=== PATIENT | female | born 1970 | race Caucasian/White ===

== ENCOUNTER 2017-06-06 19:20 | Emergency (ER) | payer OTHER ==
[~2017-06-06] VITALS: Ht 157.5 cm; Wt 74.8 kg
[~2017-06-06 19:20] MED LIST: ADDERALL XR30 MG PO; ATIVAN0.5 MG PO; BACTRIM DS TAB1 EACH PO; CHANTIX STARTING1 MG PO; CYMBALTA60 MG PO; FLEXERIL10 MG PO; IBUPROFEN800 M1 PO; KEFLEX500 M1 PO; LISINOPRIL10 MG PO; MOBIC 15MG15 MG PO; NAPROSYN500 M1 PO; OXYCODONE5 M1 PO; PERCOCET 325 MG1 TA2 PO; PERCOCET 325 MG1 TAB PO; PERCOCET 5-3251 EACH PO; PRAZOSIN HYDROCH2 MG PO
[2017-06-06 19:40] VITALS: BP 127/85
--- NOTE | 2017-06-06 20:22 | ED GENERAL ADULT ---
History of Present Illness General Chief Complaint: General Adult Stated Complaint: FALL, TWO ABCESS(1 ON ARM,1 ON THIGH) Source: patient Exam Limitations: no limitations Vital Signs & Intake/Output Vital Signs & Intake/Output Vital Signs Date Time Temp Pulse Resp B/P B/P Pulse O2 O2 Flow FiO2 Mean Ox Delivery Rate 06/06 1939 97.9 77 18 127/85 99 Room Air Allergies Coded Allergies: NO KNOWN ALLERGIES (12/25/15) Reconcile Medications Amphetamine Salt Combination (Adderall XR) 30 MG CER 1 CAP PO QAM ADD ( Reported) Cephalexin (Keflex) 500 MG CAPSULE 1 CAP PO 4 TIMES/DAY cellulitis CYCLOBENZAPRINE HCL (Flexeril) 10 MG TAB 1 TAB PO TID PRN MUSCLE RELAXATION Doxycycline Hyclate 100 MG CAPSULE 1 CAP PO BID ABCESS DULOXETINE HCL (Cymbalta) 60 MG ECC 1 CAP PO DAILY FIBROMYALGIA (Reported) Ibuprofen 800 MG TABLET 1 TAB PO TID PRN pain Indomethacin 25 MG CAPSULE 1 CAP PO TID PRN PAIN with food Lisinopril 10 MG TAB 1 TAB PO DAILY BP (Reported) Lorazepam (Ativan) 0.5 MG TAB 1 TAB PO PRN ANXIETY (Reported) Meloxicam (Mobic 15MG) 15 MG TAB 1 TAB PO DAILY PRN PAIN/INFLAMMATION Naproxen (Naprosyn) 500 MG TABLET 1 TAB PO BID PRN pain Oxycodone HCl/Acetaminophen (Percocet 5-325 MG Tablet) 1 EACH TABLET 1 TAB PO BID PRN PAIN Oxycodone HCl/Acetaminophen (Percocet 5-325 MG Tablet) 1 EACH TABLET 1-2 TAB PO Q6P PRN pain Oxycodone HCl/Acetaminophen (Percocet 5-325 MG Tablet) 1 EACH TABLET 1 TAB PO BID PRN pain four... [id number] Oxycodone HCl/Acetaminophen (Percocet 5-325 MG Tablet) 1 EACH TABLET 1 TAB PO Q6P PRN severe pain Prazosin Hydrochloride 2 MG CAP 1 CAP PO QPM PTSD (Reported) Sulfamethoxazole/Trimethoprim (Bactrim Ds Tablet) 1 EACH TABLET 1 TAB PO BID cellulitis Triage Note: PT TO ER WITH MULTIPLE MEDICAL COMPLAINTS: 1. URINARY URGENCY/ FREQUENCY X 1 DAY 2. LEFT ARM AND LEFT GROIN ABSCESS (RE-OCCURING) 3. RIGHT KNEE PAIN 9/10 S/P SLIP AND FALL ON ICE LAST WEEK. (WAS SEEN IN ER FOR SAME, HAD X RAY DONE) STATES PAIN IS INCREASING Triage Nurses Notes Reviewed? yes Onset: Gradual Duration: worse persistent since (2-3 DAYS) Timing: recent history Injury Environment: home Severity: moderate No Modifying Factors: none HPI: Patient is a 47-year-old female presenting to the emergency department with chief complaint of urinary frequency 1 day. No fevers chills nausea vomiting chest pain or shortness of breath. Denies back pain. Patient also reporting continued right knee pain after a slip and fall 1 week ago. She was evaluated here and had a negative x-ray. Denies any new injury. Is currently trying to get into see an orthopedic. Patient also complaining of abscess to left axilla region and left groin area. Has had abscesses in the past. Denies any fevers associated with them. She reports that the one in her groin area has been draining since she arrived in the emergency department. (Tiera Cunningham) Past History Travel History Traveled to [place] past 21 day No Medical History Any Pertinent Medical History? 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 No (Tiera Cunningham) Review of Systems Review of Systems Constitutional: Reports: no symptoms. Comments Review of systems: See HPI, All other systems negative. Constitutional, no chills fever or weight loss HEENT: No visual changes no sore throat no congestion Cardiovascular: No chest pain ,palpitation , orthopnea or ankle swelling Skin, no jaundice Respiratory: No dyspnea cough sputum or hemoptysis GI: No nausea no vomiting : No hematuria Muscle skeletal: no back pain, no neck pain, Neurologic: No numbness no confusion Psych: No stress anxiety or depression,. Heme/endocrine: No bruising no bleeding no polyuria or polydipsia Immunology: No splenectomy or history of AIDS (Tiera Cunningham) Physical Exam Physical Exam General Appearance: well developed/nourished, no apparent distress, alert, awake , comfortable Comments: Well-developed well-nourished person in no acute distress HEENT: Atraumatic, normocephalic Neck: Normal inspection Back: Nontender, no CVA tenderness. Cardiovascular: Pedal pulses are 2+ bilaterally. Respiratory: No respiratory distress. Extremity: No edema, no calf tenderness to palpation, normal and equal pulses. Tender to palpation over the right patella, negative ballottement test, negative anterior-posterior drawer test. Limited range of motion of the right patella secondary to pain. Range of motion of right foot, ankle and right hip. Also tender to palpation over the right medial joint line. No crepitus palpated. Neuro: Alert oriented x3, Skin: Small superficial abscess approximately 2 cm in size and left axilla area, fluctuant, nontender, no surrounding erythema or edema. No discharge. Second abscess noted in the left groin area approximately 1 cm in size, active drainage. Psych: Mood and affect is normal, memory and judgment is normal. Core Measures ACS in differential dx? No CVA/TIA Diagnosis: No Sepsis Present: No Sepsis Focused Exam Completed? No (Tiera Cunningham) Progress Differential Diagnoses I considered the following diagnoses in my evaluation of the patient: Abscess, cellulitis, MRSA, knee contusion, knee sprain, meniscal injury, UTI Plan of Care: Orders Procedure Date/time Status EXTREMETIES CULTURE 06/06 2048 Active CULTURE,URINE 06/06 1939 Active URINE 06/06 1939 Complete URINALYSIS 06/06 1939 Complete Laboratory Tests 06/06/17 2030: Urinalysis LIGHT H, Urine Color YEL, Urine Clarity HAZY H, Urine pH 6.5, Ur Specific [place] >= 1.030, Urine Protein 30 H, Urine Ketones TRACE H, Urine Nitrite NEG, Urine Bilirubin NEG@ICTO, Urine Urobilinogen 1.0, Ur Leukocyte Esterase NEG, Ur Microscopic SEDIMENT EXAMINED, Urine RBC 1-3, Urine WBC 1-3 H, Ur Epithelial Cells MOD H, Urine Bacteria MOD H, Urine Mucus FEW, Urine Hemoglobin TRACE-INTACT, Urine Glucose NEG, Urine Test NEGATIVE Microbiology 06/06 2099 EXTREMITIE: Culture & Sensitivity - RECD 06/06 2099 EXTREMITIE: Gram Stain - RECD 06/06 2029 URINE ROUT: Urine Culture - RECD Initial ED EKG: none (Tiera Cunningham) Departure Departure Time of Disposition: 2044 Disposition: HOME OR SELF CARE Condition: Stable Clinical Impression Primary Impression: Knee contusion Qualifiers: Encounter type: initial encounter Laterality: right Qualified Code: S80.01XA - Contusion of right knee, initial encounter Secondary Impressions: Abscess, Dysuria Referrals: Yoav Alvarez MD (PCP/Family) Additional Instructions: Follow-up with the orthopedic as scheduled. Follow up with her primary care physician in the next 5-7 days. If abscess recurs follow-up with the surgeon. Take antibiotics as prescribed. Apply warm compresses to affected area. 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 I have also reviewed all the pertinent lab results and diagnostic results. I agree with the findings and the plan of care as documented in the PA's/PROCESS MANUFACTURING ENGINEER's documentation. x I have reviewed the ED Record and agree with the PA's/PROCESS MANUFACTURING ENGINEER's documentation. [] Additions or exceptions (if any) to the PAs/PROCESS MANUFACTURING ENGINEER's note and plan are summarized below: [] (Bill PEGUERO,Marty) Procedures Incision and Drainage Site: LEFT AXILLA Blade Size: 11 I & D Procedure: Yes: betadine prep, sterile drapes applied, sterile dressing applied. No: wick placed. Progress: Tolerated procedure well. (Tiera Cunningham) Critical Care Note Critical Care Note Critical Care Time: non-applicable (Tiera Cunningham)
[2017-06-06] MEDS ORDERED: DOXYCYCLINE HY100 M2 PO (20:47)
[2017-06-06] MEDS ORDERED: INDOMETHACIN25 M1 PO (20:47)
== END 2017-06-06 21:22 ==
LOC: ERH 19:20
DX: S80.01XA Contusion of right knee, initial encounter (principal); L02.412 Cutaneous abscess of left axilla; R30.0 Dysuria; W01.0XXA Fall on same level from slipping, tripping and stumbling without subsequent striking against object, initial encounter; Y92.9 Unspecified place or not applicable; Y93.9 Activity, unspecified
CPT/HCPCS: 81001; 81025; 87070; 87086

== ENCOUNTER 2017-10-05 17:44 | Emergency (ER) | payer OTHER ==
[~2017-10-05] VITALS: Ht 157.5 cm; Wt 74.8 kg
[~2017-10-05 17:44] MED LIST changes: +DOXYCYCLINE HY100 M2 PO; +INDOMETHACIN25 M1 PO
--- NOTE | 2017-10-05 18:26 | ED GI/GU/ABDOMINAL COMPLAINT ---
History of Present Illness General Chief Complaint: Abdominal Pain/Flank Pain Stated Complaint: ABD PAIN Source: patient, old records Exam Limitations: no limitations Vital Signs & Intake/Output Vital Signs & Intake/Output Vital Signs Date Time Temp Pulse Resp B/P B/P Pulse O2 O2 Flow FiO2 Mean Ox Delivery Rate 10/06 2019 77 18 119/84 98 Room Air 10/05 1750 97.9 83 15 120/78 98 Room Air Room Air Allergies Coded Allergies: No Known Allergies (10/05/17) Reconcile Medications Amphetamine Salt Combination (Adderall XR) 30 MG CER 1 CAP PO QAM ADD ( Reported) Cephalexin (Keflex) 500 MG CAPSULE 1 CAP PO 4 TIMES/DAY cellulitis CYCLOBENZAPRINE HCL (Flexeril) 10 MG TAB 1 TAB PO TID PRN MUSCLE RELAXATION Doxycycline Hyclate 100 MG CAPSULE 1 CAP PO BID ABCESS DULOXETINE HCL (Cymbalta) 60 MG ECC 1 CAP PO DAILY FIBROMYALGIA (Reported) Ibuprofen 800 MG TABLET 1 TAB PO TID PRN pain Indomethacin 25 MG CAPSULE 1 CAP PO TID PRN PAIN with food Lisinopril 10 MG TAB 1 TAB PO DAILY BP (Reported) Lorazepam (Ativan) 0.5 MG TAB 1 TAB PO PRN ANXIETY (Reported) Meloxicam (Mobic 15MG) 15 MG TAB 1 TAB PO DAILY PRN PAIN/INFLAMMATION Naproxen (Naprosyn) 500 MG TABLET 1 TAB PO BID PRN pain Omeprazole 40 MG CAPSULE.DR 1 CAP PO DAILY GERD Oxycodone HCl/Acetaminophen (Percocet 5-325 MG Tablet) 1 EACH TABLET 1 TAB PO BID PRN PAIN Oxycodone HCl/Acetaminophen (Percocet 5-325 MG Tablet) 1 EACH TABLET 1-2 TAB PO Q6P PRN pain Oxycodone HCl/Acetaminophen (Percocet 5-325 MG Tablet) 1 EACH TABLET 1 TAB PO BID PRN pain four... [id number] Oxycodone HCl/Acetaminophen (Percocet 5-325 MG Tablet) 1 EACH TABLET 1 TAB PO Q6P PRN severe pain Prazosin Hydrochloride 2 MG CAP 1 CAP PO QPM PTSD (Reported) Sulfamethoxazole/Trimethoprim (Bactrim Ds Tablet) 1 EACH TABLET 1 TAB PO BID cellulitis Triage Note: PT TO ED FOR C/C OF MIDEPIGASTRIC ABD PAIN THAT RADIATES INTO RUQ WITH BELCHING, NAUSEA, VOMITING. PAIN GETS WORSE AFTER EATING. RECENTLY HAD BLADDER AND KIDNEY US THAT WERE NEGATIVE, PT ALSO HAD POSITIVE UTI A COUPLE DAYS AGO. DR. JEREZ IN TRIAGE TO SPEAK WITH PATIENT. +HEADACHE. Triage Nurses Notes Reviewed? yes ? N Is pt currently ? 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 Pain is stabbing, currently 10/10, non-radiating, non-exertional. Food makes it worse, nothing makes it better. She does not take a PPI. She has nausea but no vomiting, and normal BM. She is otherwise asymptomatic. Past History Travel History Traveled to [place] past 21 day No Medical History Any Pertinent Medical History? 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 No Review of Systems Review of Systems Constitutional: Reports: no symptoms. EENTM: Reports: no symptoms. Respiratory: Reports: no symptoms. Cardiovascular: Reports: no symptoms. GI: Reports: no symptoms. Genitourinary: Reports: no symptoms. Musculoskeletal: Reports: no symptoms. Skin: Reports: no symptoms. Neurological/Psychological: Reports: no symptoms. Hematologic/Endocrine: Reports: no symptoms. Immunologic/Allergic: Reports: no symptoms. All Other Systems: Reviewed and Negative Physical Exam Physical Exam General Appearance: well developed/nourished, no apparent distress Head: atraumatic, normal appearance Eyes: Bilateral: normal appearance. Ears, Nose, Throat, Mouth: hearing grossly normal, moist mucous membrane Neck: normal inspection, full range of motion Respiratory: normal breath sounds, no respiratory distress Cardiovascular: regular rate/rhythm Gastrointestinal: soft, non-tender Back: normal inspection Extremities: normal range of motion Neurologic/Psych: awake, alert, oriented x 3, normal mood/affect Skin: intact, normal color, warm/dry Core Measures ACS in differential dx? No Sepsis Present: No Sepsis Focused Exam Completed? No Progress Differential Diagnosis: AAA, AMI, appendicitis, biliary colic, bowel obstruction , colon cancer, cholecystitis, diverticulitis, ectopic , endometritis, esophageal varices, gastritis, hepatitis, hernia, hemorrhoids, ischemic bowel, inflamm bowel dis, intrauterine , kidney stone, Nichole-Kelly tear, ovarian cyst, ovarian torsion, pancreatitis, PID/cervicitis, peptic ulcer, PUD/ GERD, perforated viscous, SBO, threatened AB, UTI/pyelo Plan of Care: Orders Procedure Date/time Status TROPONIN LEVEL 10/05 1758 Complete LIPASE 10/05 1758 Complete COMPREHENSIVE METABOLIC PANEL 10/05 1758 Complete CBC WITHOUT DIFFERENTIAL 10/05 1758 Complete EKG 10/05 1758 Active Laboratory Tests 10/05/171808: Anion Gap 11, Estimated GFR > 60, BUN/Creatinine Ratio 25.7 H, Glucose 85, Calcium 10.6 H, Total Bilirubin 0.4, AST 13 L, ALT 10, Alkaline Phosphatase 69 , Troponin I < 0.01, Total Protein 7.4, Albumin 4.6, Globulin 2.8, Albumin/ Globulin Ratio 1.6, Lipase 360 H, CBC w Diff NO MAN DIFF REQ, RBC 4.44, MCV 89.5, MCH 29.2, MCHC 32.6 L, RDW 14.1, MPV 7.6, Gran % 49.8, Lymphocytes % 41.0 , Monocytes % 6.1, Eosinophils % 1.9, Basophils % 1.2, Absolute Granulocytes 4.4 , Absolute Lymphocytes 3.6 H, Absolute Monocytes 0.5, Absolute Eosinophils 0.2, Absolute Basophils 0.1 Diagnostic Imaging: Viewed by Me: CT Scan. Discussed w/RAD: CT Scan. Radiology Impression: PATIENT: IESHA ROSE PRESENT AGE: 47 PATIENT ACCOUNT NO: [id number] : 71 LOCATION: [facility] ORDERING PHYSICIAN: Kleber Jerez MD SERVICE DATE: 10/05/17 EXAM TYPE: CAT - CT ABD & PELVIS W IV CONTRAST EXAMINATION: CT ABDOMEN AND PELVIS WITH CONTRAST CLINICAL INFORMATION: Epigastric pain. COMPARISON: None TECHNIQUE: Multidetector volumetric imaging was performed of the abdomen and pelvis following IV administration of 90 mL of Optiray 320 intravenous contrast. Sagittal and coronal reformatted images were obtained on the technologist's workstation. DLP: 447.68 mGy-cm FINDINGS: LUNG BASES: The visualized lung bases are unremarkable. LIVER, GALLBLADDER, AND BILIARY TREE: The liver is normal in size, shape, and attenuation. No focal hepatic lesion or biliary ductal dilatation is present. The gallbladder is unremarkable with no evidence of radiopaque gallstones, gallbladder wall thickening, or obvious pericholecystic inflammatory changes. PANCREAS: Unremarkable. SPLEEN: Unremarkable. ADRENAL GLANDS: Unremarkable. KIDNEYS AND URETERS: The kidneys are normal in size, shape, and attenuation. No hydronephrosis, hydroureter, or calculi seen. No perinephric stranding. BLADDER: Unremarkable. GASTROINTESTINAL TRACT: There is diverticulosis of the colon. The diverticula are most numerous at the sigmoid colon. There is no diverticulitis. No acute change of the bowel. No bowel obstruction. No bowel wall thickening or edema. Surgical sutures associated with the greater curvature the stomach. The small bowel loops are unremarkable. The appendix is normal. ABDOMINAL WALL: No significant hernia is appreciated. LYMPH NODES: Normal. VASCULAR: Unremarkable. PELVIC VISCERA: Uterus is absent. There is no adnexal abnormality. OSSEOUS STRUCTURES: Unremarkable IMPRESSION: No acute abnormality CT scan abdomen and pelvis. 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 Return to ER if any new or worsening symptoms. Departure Forms: Customer Survey General Discharge Information Prescriptions: Current Visit Scripts Omeprazole 1 CAP PO DAILY #30 CAP
[2017-10-05 18:46] LABS: ABSOLUTE BASOPHIL COUNT 0.1 /CUMM (0.0-0.2); ABSOLUTE EOSINOPHIL COUNT 0.2 /CUMM (0.0-0.7); ABSOLUTE GRANULOCYTE CT 4.4 /CUMM (1.4-6.5); ABSOLUTE LYMPH COUNT 3.6 /CUMM (1.2-3.4); ABSOLUTE MONOCYTE COUNT 0.5 /CUMM (0.10-0.60); BASOPHIL % 1.2 % (0.0-2.0); EOSINOPHIL % 1.9 % (0-5); HEMATOCRIT 39.8 % (37-47); MEAN CORPUSCULAR HGB 29.2 PG (27.0-31.0); MEAN CORPUSCULAR HGB CONC 32.6 G/DL (33.0-37.0); MEAN CORPUSCULAR VOLUME 89.5 FL (81.0-99.0); MEAN PLATELET VOLUME 7.6 FL (7.4-10.4); PLATELET COUNT 291 /CUMM (130-400); RBC DISTRIBUTION WIDTH 14.1 % (11.5-14.5); RED BLOOD CELL CT 4.44 /CUMM (4.20-5.40); WHITE BLOOD CELL COUNT 8.9 /CUMM (4.8-10.8)
[2017-10-05 18:54] LABS: GRANULOCYTE % 49.8 % (42.2-75.2)
--- NOTE | 2017-10-05 20:12 | CT SCAN REPORT ---
EXAMINATION: CT ABDOMEN AND PELVIS WITH CONTRAST CLINICAL INFORMATION: Epigastric pain. COMPARISON: None TECHNIQUE: Multidetector volumetric imaging was performed of the abdomen and pelvis following IV administration of 90 mL of Optiray 320 intravenous contrast. Sagittal and coronal reformatted images were obtained on the technologist's workstation. DLP: 447.68 mGy-cm FINDINGS: LUNG BASES: The visualized lung bases are unremarkable. LIVER, GALLBLADDER, AND BILIARY TREE: The liver is normal in size, shape, and attenuation. No focal hepatic lesion or biliary ductal dilatation is present. The gallbladder is unremarkable with no evidence of radiopaque gallstones, gallbladder wall thickening, or obvious pericholecystic inflammatory changes. PANCREAS: Unremarkable. SPLEEN: Unremarkable. ADRENAL GLANDS: Unremarkable. KIDNEYS AND URETERS: The kidneys are normal in size, shape, and attenuation. No hydronephrosis, hydroureter, or calculi seen. No perinephric stranding. BLADDER: Unremarkable. GASTROINTESTINAL TRACT: There is diverticulosis of the colon. The diverticula are most numerous at the sigmoid colon. There is no diverticulitis. No acute change of the bowel. No bowel obstruction. No bowel wall thickening or edema. Surgical sutures associated with the greater curvature the stomach. The small bowel loops are unremarkable. The appendix is normal. ABDOMINAL WALL: No significant hernia is appreciated. LYMPH NODES: Normal. VASCULAR: Unremarkable. PELVIC VISCERA: Uterus is absent. There is no adnexal abnormality. OSSEOUS STRUCTURES: Unremarkable IMPRESSION: No acute abnormality CT scan abdomen and pelvis.
[2017-10-05 20:20] VITALS: BP 119/84
[2017-10-05] MEDS ORDERED: OMEPRAZOLE40 M1 PO (20:45)
== END 2017-10-05 21:02 ==
LOC: ERH 17:44
PROVIDERS: Internal Medicine
DX: K21.9 Gastro-esophageal reflux disease without esophagitis (principal); R10.13 Epigastric pain
CPT/HCPCS: 74177; 93005; 93010

== ENCOUNTER 2018-02-04 13:38 | Observation (INO) | payer OTHER ==
[~2018-02-04] VITALS: Ht 157.5 cm; Wt 77.1 kg
[~2018-02-04 13:38] MED LIST changes: +OMEPRAZOLE40 M1 PO
--- NOTE | 2018-02-04 13:52 | ED GI/GU/ABDOMINAL COMPLAINT ---
History of Present Illness General Chief Complaint: Abdominal Pain/Flank Pain Stated Complaint: S/P SUG BYPASS STATS SEVERE ABD PAIN Source: patient Exam Limitations: no limitations Vital Signs & Intake/Output Vital Signs & Intake/Output Vital Signs Date Time Temp Pulse Resp B/P B/P Pulse O2 O2 Flow FiO2 Mean Ox Delivery Rate 02/04 2046 99.1 84 20 106/57 96 Room Air 02/04 1724 98.4 86 18 111/69 97 Room Air 02/04 1635 93 18 117/77 Room Air 02/04 1455 98.7 86 20 120/81 98 Room Air 02/04 1341 97.0 97 18 117/79 98 Room Air Allergies Coded Allergies: No Known Allergies (10/05/17) Reconcile Medications Amphetamine Salt Combination (Adderall XR) 30 MG CER 1 CAP PO QAM ADD ( Reported) Hydrocodone/Acetaminophen (Hycet 7.5 MG-325 MG/15 Ml Soln) 7.5 MG-325 MG/15 ML SOLUTION 15 ML PO Q4P PRN PAIN Lisinopril 10 MG TAB 1 TAB PO DAILY BP (Reported) Lorazepam (Ativan) 0.5 MG TAB 1 TAB PO PRN ANXIETY (Reported) Omeprazole 40 MG CAPSULE.DR 1 CAP PO DAILY GERD Prazosin Hydrochloride 2 MG CAP 1 CAP PO QPM PTSD (Reported) Triage Note: TRIAGE: 47 Y/O FEMALE PRESENTS S/P GASTRIC BYPASS AND HIATAL HERNIA REPAIR SURGERY ON 01/28/[address] HILLS. PATIENT NOW REPORTS 100/10 ABDOMINAL PAIN SINCE YESTERDAY. Triage Nurses Notes Reviewed? yes ? n Is pt currently ? No HPI: Patient presents for evaluation of abdominal pain on postop day #7 status post hiatal hernia surgery and gastric bypass. Patient states pain began a few days ago and has been characterized as severe sharp stabbing pulling pain diffusely. Patient denies any associated nausea vomiting diarrhea or chest pain. Patient likewise denies bleeding. She does state she feels bloated and gassy. Patient pain radiates to her mid back and shoulders. She does refer shortness of breath in addition to the above. Patient states that she was being treated with Zofran , oxycodone and an antibiotic but has run out of her oxycodone. Patient tried Tylenol today without improvement. Past History Travel History Traveled to [place] past 21 day No Medical History Any Pertinent Medical History? 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 No Review of Systems Review of Systems Constitutional: Reports: no symptoms. EENTM: Reports: no symptoms. Respiratory: Reports: no symptoms. Cardiovascular: Reports: no symptoms. GI: Reports: see HPI. Genitourinary: Reports: no symptoms. Musculoskeletal: Reports: no symptoms. Skin: Reports: no symptoms. Neurological/Psychological: Reports: no symptoms. Hematologic/Endocrine: Reports: no symptoms. Immunologic/Allergic: Reports: no symptoms. All Other Systems: Reviewed and Negative Physical Exam Physical Exam Gastrointestinal: see below Comments: Gen.: Well-nourished, well-developed, no acute respiratory distress. Obese. Head: Normocephalic, atraumatic. Eyes: Normal inspection bilaterally Ears: Normal inspection bilaterally Nose: Normal inspection Throat/mouth : Moist mucosa Neck: Supple, full range of motion, no goiter Heart: Regular rate and rhythm, no murmurs rubs or gallops Lungs: Clear to auscultation bilaterally with normal air entry Chest: Nontender Back: Normal range of motion Abdomen: Soft, tenderness of the mid quadrants bilaterally with voluntary guarding but no rebound, nondistended, normal bowel sounds, surgical wounds healing well Extremities: Normal range of motion grossly, equal radial pulses, no cyanosis clubbing or edema Neurologic: Cranial nerves grossly intact, speech is clear Skin: warm and dry Psychiatric: Calm, cooperative, no apparent delusions or hallucinations Core Measures ACS in differential dx? No Sepsis Present: No Sepsis Focused Exam Completed? No Progress Differential Diagnosis: postoperative pain, postop infection, postoperative bleeding, ileus, obstruction, constipation Plan of Care: Orders Procedure Date/time Status Place in observation 02/05 2112 Active URINALYSIS 02/04 1412 Complete LIPASE 02/04 1412 Complete COMPREHENSIVE METABOLIC PANEL 02/04 141 Complete CBC WITHOUT DIFFERENTIAL 02/04 141 Complete Laboratory Tests 02/04/18 1531: Urine Color YEL, Urine Clarity CLEAR, Urine pH 7.5, Ur Specific [place] 1.010, Urine Protein NEG, Urine Ketones NEG, Urine Nitrite NEG, Urine Bilirubin NEG, Urine Urobilinogen 0.2, Ur Leukocyte Esterase NEG, Ur Microscopic EXAM NOT REQUIRED, Urine Hemoglobin NEG, Urine Glucose NEG 02/04/18 1440: Anion Gap 6, Estimated GFR > 60, BUN/Creatinine Ratio 21.4, Glucose 98, Calcium 9.6, Total Bilirubin 0.4, AST 19, ALT 43, Alkaline Phosphatase 108, Total Protein 6.3, Albumin 3.7, Globulin 2.6, Albumin/Globulin Ratio 1.4, Lipase 204, CBC w Diff NO MAN DIFF REQ, RBC 3.99 L, MCV 90.0, MCH 30.5, MCHC 33.9, RDW 13.9 , MPV 6.9 L, Gran % 71.3, Lymphocytes % 16.8 L, Monocytes % 9.9 H, Eosinophils % 1.7, Basophils % 0.3, Absolute Granulocytes 7.4 H, Absolute Lymphocytes 1.7, Absolute Monocytes 1.0 H, Absolute Eosinophils 0.2, Absolute Basophils 0 Diagnostic Imaging: Discussed w/RAD: CT Scan. Radiology Impression: PATIENT: IESHA ROSE PRESENT AGE: 47 PATIENT ACCOUNT NO: [id number] : 71 LOCATION: [facility] ORDERING PHYSICIAN: Gideon Spring MD SERVICE DATE: 02/04/18 EXAM TYPE: CAT - CT ABD & PELVIS W ORAL & IV CO EXAMINATION: CT ABDOMEN AND PELVIS WITH CONTRAST CLINICAL INFORMATION: Abdominal pain COMPARISON: 10/05/2017 TECHNIQUE: Multidetector volumetric imaging was performed of the abdomen and pelvis following IV administration of 95 mL of Optiray 320 intravenous contrast. Sagittal and coronal reformatted images were obtained on the technologist's workstation. DLP: 540 mGy-cm FINDINGS: LUNG BASES: Linear atelectasis at the posterior lung bases. LIVER, GALLBLADDER, AND BILIARY TREE: The liver is normal in size, shape, and attenuation. No focal hepatic lesion or biliary ductal dilatation is present. The gallbladder is unremarkable with no evidence of radiopaque gallstones, gallbladder wall thickening, or obvious pericholecystic inflammatory changes. PANCREAS: Unremarkable. SPLEEN: Unremarkable. ADRENAL GLANDS: Unremarkable. KIDNEYS AND URETERS: The kidneys are normal in size, shape , and attenuation. No hydronephrosis, hydroureter, or calculi seen. No perinephric stranding. BLADDER: Unremarkable. GASTROINTESTINAL TRACT: Postsurgical changes related to the gastric bypass and gastrojejunostomy. There are mildly dilated loops of small bowel throughout the mid and left abdomen which most likely represents a postoperative ileus. No evidence of a leak. No definite obstruction. No abscess or hematoma. Ill-defined stranding of the subcutaneous fat of the right midabdomen. ABDOMINAL WALL: No significant hernia is appreciated. LYMPH NODES: Normal. VASCULAR: Unremarkable. PELVIC VISCERA: The uterus is absent. OSSEOUS STRUCTURES: Unremarkable. IMPRESSION: There are dilated small bowel loops in the mid and left abdomen with no clear transition point, most likely representing a postoperative ileus. Difficult to exclude low- grade partial obstruction. Recommend clinical follow-up and consider a repeat abdominal CT or a small bowel follow-through study if symptoms do not improve. There is no evidence of a leak. There is no abscess. No hematoma. DICTATED BY: Chavez Mejia MD DATE/TIME DICTATED:02/04/181640 NURSE ORTHOPEDIC: SERGIO DATE/TIME TRANSCRIBED:02/04/181640 CONFIDENTIAL, DO NOT COPY WITHOUT APPROPRIATE AUTHORIZATION. <Electronically signed in Other Vendor System> SIGNED BY: Chavez Mejia MD 02/04/18 8428 Initial ED EKG: none Comments: 02/04/2018 7:19:04 PM case d/w dr shepard for the third time (initially he had additional questions such as is her distal contrast on the CAT scan). We now know who the surgeon was and that they were suture was done at [facility]. There is contrast in the colon noted by the radiologist on the patient's CAT scan. Dr Shepard will try to contact Dr. Jun Hills regarding the next step in this patient's evaluation and treatment. 02/04/2018 7:38:22 PM patient's case discussed with Jun Collier who has asked that the surgical PA evaluate the patient. Dr. Collier will attempt to access the patient's CAT scan remotely. 02/04/2018 8:50:[address] Hills has spoken with the patient herself after reviewing the CAT scan remotely. The patient was also evaluated by the surgical PA briefly but at the request of Dr. Hills, the patient will be transferred to [facility]. D/w Dr. Jacob (ED physician) at [facility] emergency department. He will call back to confirm ability to receive patient. 02/04/2018 9:11:53 PM have just been notified by the surgical PA that the patient will be staying at [facility] for treatment. Departure Departure Disposition: STILL A PATIENT Condition: Stable Clinical Impression Primary Impression: Postoperative ileus Referrals: Alex Mcintosh MD (PCP/Family) Departure Forms: Customer Survey General Discharge Information Prescriptions: Current Visit Scripts Hydrocodone/Acetaminophen (Hycet 7.5 MG-325 MG/15 Ml Soln) 15 ML PO Q4P PRN PAIN #150 ML Observation Note Spoke With: Amira PEGUERO,Jun Cooley Place Patient In: Non-ED OBS Care Area Rationale for Observation: My rational for observation is as follows patient is experiencing severe abdominal pain 7 days postop from gastric bypass and hiatal hernia surgery. She is requiring IV narcotic pain relievers for appropriate pain control. I do not feel that she could be safely treated as an outpatient under the circumstances and she would likely return with uncontrolled pain. While in the hospital patient should be kept nothing by mouth and monitored for any worsening of her clinical condition. If patient deteriorates then urgent surgical intervention should be considered..
[2018-02-04 14:46] LABS: ABSOLUTE BASOPHIL COUNT 0 /CUMM (0.0-0.2); ABSOLUTE EOSINOPHIL COUNT 0.2 /CUMM (0.0-0.7); ABSOLUTE GRANULOCYTE CT 7.4 /CUMM (1.4-6.5); ABSOLUTE LYMPH COUNT 1.7 /CUMM (1.2-3.4); BASOPHIL % 0.3 % (0.0-2.0); EOSINOPHIL % 1.7 % (0-5); GRANULOCYTE % 71.3 % (42.2-75.2); HEMATOCRIT 35.9 % (37-47); MEAN CORPUSCULAR HGB 30.5 PG (27.0-31.0); MEAN CORPUSCULAR HGB CONC 33.9 G/DL (33.0-37.0); MEAN PLATELET VOLUME 6.9 FL (7.4-10.4); PLATELET COUNT 412 /CUMM (130-400); RBC DISTRIBUTION WIDTH 13.9 % (11.5-14.5); RED BLOOD CELL CT 3.99 /CUMM (4.20-5.40); WHITE BLOOD CELL COUNT 10.4 /CUMM (4.8-10.8)
--- NOTE | 2018-02-04 17:08 | CT SCAN REPORT ---
EXAMINATION: CT ABDOMEN AND PELVIS WITH CONTRAST CLINICAL INFORMATION: Abdominal pain COMPARISON: 10/05/2017 TECHNIQUE: Multidetector volumetric imaging was performed of the abdomen and pelvis following IV administration of 95 mL of Optiray 320 intravenous contrast. Sagittal and coronal reformatted images were obtained on the technologist's workstation. DLP: 540 mGy-cm FINDINGS: LUNG BASES: Linear atelectasis at the posterior lung bases. LIVER, GALLBLADDER, AND BILIARY TREE: The liver is normal in size, shape, and attenuation. No focal hepatic lesion or biliary ductal dilatation is present. The gallbladder is unremarkable with no evidence of radiopaque gallstones, gallbladder wall thickening, or obvious pericholecystic inflammatory changes. PANCREAS: Unremarkable. SPLEEN: Unremarkable. ADRENAL GLANDS: Unremarkable. KIDNEYS AND URETERS: The kidneys are normal in size, shape, and attenuation. No hydronephrosis, hydroureter, or calculi seen. No perinephric stranding. BLADDER: Unremarkable. GASTROINTESTINAL TRACT: Postsurgical changes related to the gastric bypass and gastrojejunostomy. There are mildly dilated loops of small bowel throughout the mid and left abdomen which most likely represents a postoperative ileus. No evidence of a leak. No definite obstruction. No abscess or hematoma. Ill-defined stranding of the subcutaneous fat of the right midabdomen. ABDOMINAL WALL: No significant hernia is appreciated. LYMPH NODES: Normal. VASCULAR: Unremarkable. PELVIC VISCERA: The uterus is absent. OSSEOUS STRUCTURES: Unremarkable. IMPRESSION: There are dilated small bowel loops in the mid and left abdomen with no clear transition point, most likely representing a postoperative ileus. Difficult to exclude low-grade partial obstruction. Recommend clinical follow-up and consider a repeat abdominal CT or a small bowel follow-through study if symptoms do not improve. There is no evidence of a leak. There is no abscess. No hematoma.
--- NOTE | 2018-02-04 21:25 | History & Physical Pre-Op ---
Miguel Cordoba 02/04/182118: General Information and HPI MD Statement: I have seen and personally examined IESHA ROSE and documented this H&P. The patient is a 47 year old F who presented with a patient stated chief complaint of [abdominal pain]. Source of Information: patient, old records Exam Limitations: no limitations History of Present Illness: 47-year-old female 1 week status post gastric bypass surgery done in [facility] by Dr. Jun Collier presents to the ER with severe abdominal pain that started this morning, crampy in nature, constant, diffuse, mostly right-sided but notes pain throughout her entire abdomen. She denies any fever or chills. She is not passing gas, and states she states she is having loose bowel movements, frequently. She feels abdominal distention. She initially was not nauseous but felt nauseous in the emergency room, there is no vomiting. While in the ER she received a CAT scan with IV and p.o. contrast which showed an ileus or possible partial early small bowel obstruction. Surgery was consulted for further evaluation and management. During her immediate postoperative course patient denied any immediate complications, she states that she has been taking her Protonix and hycet at home for pain Allergies/Medications Allergies: Coded Allergies: No Known Allergies (10/05/17) Home Med list Amphetamine Salt Combination (Adderall XR) 30 MG CER 1 CAP PO QAM ADD ( Reported) Cephalexin (Keflex) 500 MG CAPSULE 1 CAP PO 4 TIMES/DAY cellulitis CYCLOBENZAPRINE HCL (Flexeril) 10 MG TAB 1 TAB PO TID PRN MUSCLE RELAXATION Doxycycline Hyclate 100 MG CAPSULE 1 CAP PO BID ABCESS DULOXETINE HCL (Cymbalta) 60 MG ECC 1 CAP PO DAILY FIBROMYALGIA (Reported) Ibuprofen 800 MG TABLET 1 TAB PO TID PRN pain Indomethacin 25 MG CAPSULE 1 CAP PO TID PRN PAIN with food Lisinopril 10 MG TAB 1 TAB PO DAILY BP (Reported) Lorazepam (Ativan) 0.5 MG TAB 1 TAB PO PRN ANXIETY (Reported) Meloxicam (Mobic 15MG) 15 MG TAB 1 TAB PO DAILY PRN PAIN/INFLAMMATION Naproxen (Naprosyn) 500 MG TABLET 1 TAB PO BID PRN pain Omeprazole 40 MG CAPSULE.DR 1 CAP PO DAILY GERD Oxycodone HCl/Acetaminophen (Percocet 5-325 MG Tablet) 1 EACH TABLET 1 TAB PO BID PRN PAIN Oxycodone HCl/Acetaminophen (Percocet 5-325 MG Tablet) 1 EACH TABLET 1-2 TAB PO Q6P PRN pain Oxycodone HCl/Acetaminophen (Percocet 5-325 MG Tablet) 1 EACH TABLET 1 TAB PO BID PRN pain four... 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 Review of Systems Review of Systems: Review of systems: See HPI, all other systems negative. Constitutional: No chills fever or weight loss HEENT: No visual changes no sore throat no congestion Cardiovascular: No chest pain ,palpitation , orthopnea or ankle swelling Skin: No jaundice no rashes Respiratory: No dyspnea cough sputum or hemoptysis GI: See HPI : No dysuria no hematuria Musclulo skeletal: No back pain no neck pain, Neurologic: No numbness no confusion Psych: No stress anxiety or depression,. Heme/endocrine: No bruising no bleeding no polyuria or polydipsia Immunology: No splenectomy or history of AIDS Exam & Diagnostic Data Last 24 Hrs of Vital Signs/I&O Vital Signs Date Time Temp Pulse Resp B/P B/P Pulse O2 O2 Flow FiO2 Mean Ox Delivery Rate 02/04 2046 99.1 84 20 106/57 96 Room Air 02/04 1724 98.4 86 18 111/69 97 Room Air 02/04 1635 93 18 117/77 Room Air 02/04 1455 98.7 86 20 120/81 98 Room Air 02/04 1341 97.0 97 18 117/79 98 Room Air Intake & Output 02/04 1600 02/04 0800 02/04 0000 Intake Total Output Total Balance Patient 170 lb Weight Weight Reported by Patient Measurement Method Physical Exam: Well-developed well-nourished person Appears uncomfortable, tearful HEENT: Normal EENT exam, Pharynx normal. No swelling or edema. Neck: Supple, no lymphadenopathy, Cardiovascular: Regular rate and rhythms no murmurs, normal JVP Respiratory: Chest nontender. No respiratory distress. Breath sounds clear to auscultation bilaterally Abdomen: Mild distention. Diffuse abdominal tenderness especially at the entire right side of the abdomen around the drain site. There is no active drainage. There is scant amount of drainage noted on dressing. Incisions are clean dry and intact otherwise, healing well. There is normal bowel sounds. The abdomen is diffusely tender to light and deep palpation. There is voluntary guarding Extremity: No edema, no calf tenderness to palpation, normal and equal pulses. Neuro: Alert oriented x3, motor sensory normal, cranial nerves II through XII grossly intact. Skin: No appreciable rash on exposed skin, skin is warm and dry. Psych: Tearful, memory and judgment is normal Last 24 Hrs of Labs/Red: Laboratory Tests 02/04/18 1531: Urine Color YEL, Urine Clarity CLEAR, Urine pH 7.5, Ur Specific [place] 1.010, Urine Protein NEG, Urine Ketones NEG, Urine Nitrite NEG, Urine Bilirubin NEG, Urine Urobilinogen 0.2, Ur Leukocyte Esterase NEG, Ur Microscopic EXAM NOT REQUIRED, Urine Hemoglobin NEG, Urine Glucose NEG 02/04/18 1440: Anion Gap 6, Estimated GFR > 60, BUN/Creatinine Ratio 21.4, Glucose 98, Calcium 9.6, Total Bilirubin 0.4, AST 19, ALT 43, Alkaline Phosphatase 108, Total Protein 6.3, Albumin 3.7, Globulin 2.6, Albumin/Globulin Ratio 1.4, Lipase 204, CBC w Diff NO MAN DIFF REQ, RBC 3.99 L, MCV 90.0, MCH 30.5, MCHC 33.9, RDW 13.9 , MPV 6.9 L, Gran % 71.3, Lymphocytes % 16.8 L, Monocytes % 9.9 H, Eosinophils % 1.7, Basophils % 0.3, Absolute Granulocytes 7.4 H, Absolute Lymphocytes 1.7, Absolute Monocytes 1.0 H, Absolute Eosinophils 0.2, Absolute Basophils 0 Diagnostic Data Other Results PATIENT: IESHA ROSE PRESENT AGE: 47 PATIENT ACCOUNT NO: [id number] : 71 LOCATION: [facility], [place] ORDERING PHYSICIAN: Gideon Spring MD SERVICE DATE: 02/04/18 EXAM TYPE: CAT - CT ABD & PELVIS W ORAL & IV CO EXAMINATION: CT ABDOMEN AND PELVIS WITH CONTRAST CLINICAL INFORMATION: Abdominal pain COMPARISON: 10/05/2017 TECHNIQUE: Multidetector volumetric imaging was performed of the abdomen and pelvis following IV administration of 95 mL of Optiray 320 intravenous contrast. Sagittal and coronal reformatted images were obtained on the technologist's workstation. DLP: 540 mGy-cm FINDINGS: LUNG BASES: Linear atelectasis at the posterior lung bases. LIVER, GALLBLADDER, AND BILIARY TREE: The liver is normal in size, shape, and attenuation. No focal hepatic lesion or biliary ductal dilatation is present. The gallbladder is unremarkable with no evidence of radiopaque gallstones, gallbladder wall thickening, or obvious pericholecystic inflammatory changes. PANCREAS: Unremarkable. SPLEEN: Unremarkable. ADRENAL GLANDS: Unremarkable. KIDNEYS AND URETERS: The kidneys are normal in size, shape, and attenuation. No hydronephrosis, hydroureter, or calculi seen. No perinephric stranding. BLADDER: Unremarkable. GASTROINTESTINAL TRACT: Postsurgical changes related to the gastric bypass and gastrojejunostomy. There are mildly dilated loops of small bowel throughout the mid and left abdomen which most likely represents a postoperative ileus. No evidence of a leak. No definite obstruction. No abscess or hematoma. Ill-defined stranding of the subcutaneous fat of the right midabdomen. ABDOMINAL WALL: No significant hernia is appreciated. LYMPH NODES: Normal. VASCULAR: Unremarkable. PELVIC VISCERA: The uterus is absent. OSSEOUS STRUCTURES: Unremarkable. IMPRESSION: There are dilated small bowel loops in the mid and left abdomen with no clear transition point, most likely representing a postoperative ileus. Difficult to exclude low-grade partial obstruction. Recommend clinical follow-up and consider a repeat abdominal CT or a small bowel follow-through study if symptoms do not improve. There is no evidence of a leak. There is no abscess. No hematoma. DICTATED BY: Chavez Mejia MD DATE/TIME DICTATED:02/04/181640 PROJECT MANAGEMENT DIRECTOR:SERGIO DATE/TIME TRANSCRIBED:02/04/18 / 1641 CONFIDENTIAL, DO NOT COPY WITHOUT APPROPRIATE AUTHORIZATION. <Electronically signed in Other Vendor System> SIGNED BY: Chavez Mejia MD 08/19 1707 Assessment/Plan Assessment/Plan: 47-year-old female 1 week status post gastric bypass surgery with severe diffuse abdominal pain. Likely this is a postoperative ileus. There is also significant amount of soft tissue stranding on the right side of the abdomen which could represent an early cellulitis or panniculitis. We will place her in observation and continue to monitor her symptoms, placed on clear liquid diet, provide her with IV analgesics, Toradol, PPI and place her on Unasyn for possible cellulitis/panniculitis. Continue IV fluids, DVT prophylaxis with heparin subcu and alps. Serial exams and repeat labs in the morning. Patient understands and agrees with plan. Discussed with Dr. Jun Collier As Ranked By This Provider Problem List: 1. Postoperative abdominal pain 2. Postoperative ileus Copies To: Amira PEGUERO,Lefty Isabel DO 02/05/18 5264: Attending MD Review Statement Attending Statement Attending MD Statement: examined this patient, discuss w/resident/PA/HUMAN RESOURCES OPERATIONS COORDINATOR, agreed w/resident/PA/HUMAN RESOURCES OPERATIONS COORDINATOR, reviewed EMR data (avail), reviewed images Attending Assessment/Plan: Patient seen and examined, agree with above. 1 week s/p LRYGB (conversion from Sleeve d/t GERD). Has had pain ever since surgery but got more severe over weekend. Denies N/V, has had some loose stools (not regular), no F/C. AVSS UO ok. Comfortably sitting in bed watching tv, drinking coffee. Abd-soft, tenderness, no peritonal signs. Labs ok. CT scan - no SBO, ?ileus, subq stranding along right abdominal wall. Cont clears, will get AXR to assess progress of contrast, pain control (will try to minimize narcotics), cont to obesrve.
[2018-02-04 23:07] VITALS: BP 110/58
--- NOTE | 2018-02-05 01:23 | Admission Core Measures ---
Acute Coronary Syndrome (CM) ACS Core Measures Acute Coronary Syndrome Diagnosis No Congestive Heart Failure (NEW) CHF Core Measures Congestive Heart Failure Diagnosis No Cerebrovascular Accident CVA Core Measures CVA/TIA Diagnosis No Venous Thromboembolism VTE Core Pravin (View Protocol) VTE Risk Factors Surgery No Mechanical VTE Prophylaxis d/t N/A MechProphylax Ordered No VTE Pharm Prophylaxis d/t NA PharmProphylax ordered Problem List As ranked by this Provider includes Assessment & Plan 1. Postoperative abdominal pain 2. Ileus, postoperative HOME MEDS Home Med List Amphetamine Salt Combination (Adderall XR) 30 MG CER 1 CAP PO QAM ADD ( Reported) Cephalexin (Keflex) 500 MG CAPSULE 1 CAP PO 4 TIMES/DAY cellulitis CYCLOBENZAPRINE HCL (Flexeril) 10 MG TAB 1 TAB PO TID PRN MUSCLE RELAXATION Doxycycline Hyclate 100 MG CAPSULE 1 CAP PO BID ABCESS DULOXETINE HCL (Cymbalta) 60 MG ECC 1 CAP PO DAILY FIBROMYALGIA (Reported) Ibuprofen 800 MG TABLET 1 TAB PO TID PRN pain Indomethacin 25 MG CAPSULE 1 CAP PO TID PRN PAIN Lisinopril 10 MG TAB 1 TAB PO DAILY BP (Reported) Lorazepam (Ativan) 0.5 MG TAB 1 TAB PO PRN ANXIETY (Reported) Meloxicam (Mobic 15MG) 15 MG TAB 1 TAB PO DAILY PRN PAIN/INFLAMMATION Naproxen (Naprosyn) 500 MG TABLET 1 TAB PO BID PRN pain Omeprazole 40 MG CAPSULE.DR 1 CAP PO DAILY GERD Oxycodone HCl/Acetaminophen (Percocet 5-325 MG Tablet) 1 EACH TABLET 1 TAB PO BID PRN PAIN Oxycodone HCl/Acetaminophen (Percocet 5-325 MG Tablet) 1 EACH TABLET 1-2 TAB PO Q6P PRN pain Oxycodone HCl/Acetaminophen (Percocet 5-325 MG Tablet) 1 EACH TABLET 1 TAB PO BID PRN pain Oxycodone HCl/Acetaminophen (Percocet 5-325 MG Tablet) 1 EACH TABLET 1 TAB PO Q6P PRN severe pain Prazosin Hydrochloride 2 MG CAP 1 CAP PO QPM PTSD (Reported) Sulfamethoxazole/Trimethoprim (Bactrim Ds Tablet) 1 EACH TABLET 1 TAB PO BID cellulitis
[2018-02-05 07:19] VITALS: BP 101/68
[2018-02-05 08:08] LABS: ABSOLUTE BASOPHIL COUNT 0 /CUMM (0.0-0.2); ABSOLUTE EOSINOPHIL COUNT 0.1 /CUMM (0.0-0.7); ABSOLUTE GRANULOCYTE CT 3.4 /CUMM (1.4-6.5); ABSOLUTE LYMPH COUNT 2.2 /CUMM (1.2-3.4); ABSOLUTE MONOCYTE COUNT 0.6 /CUMM (0.10-0.60); BASOPHIL % 0.5 % (0.0-2.0); EOSINOPHIL % 2.3 % (0-5); GRANULOCYTE % 53.4 % (42.2-75.2); MEAN CORPUSCULAR HGB 30.5 PG (27.0-31.0); MEAN CORPUSCULAR HGB CONC 33.6 G/DL (33.0-37.0); MEAN CORPUSCULAR VOLUME 90.7 FL (81.0-99.0); MEAN PLATELET VOLUME 7.5 FL (7.4-10.4); PLATELET COUNT 278 /CUMM (130-400); RBC DISTRIBUTION WIDTH 14.2 % (11.5-14.5); RED BLOOD CELL CT 3.27 /CUMM (4.20-5.40); WHITE BLOOD CELL COUNT 6.4 /CUMM (4.8-10.8)
--- NOTE | 2018-02-05 08:13 | PN- General Surgery ---
See Addendum Subjective Subjective: Pt states she has not passed gas or stool since yesterday. Still with significant abd pain. Tolerating clears, no nausea or vomiting. Voiding and ambulating. Denies CP/SOB and fevers Objective Vital Signs and I&Os Vital Signs Date Time Temp Pulse Resp B/P B/P Pulse O2 O2 Flow FiO2 Mean Ox Delivery Rate 02/05 719 97.8 74 20 101/68 95 Room Air 02/05 0006 98.7 02/04 2307 98.3 78 18 110/58 98 Room Air 02/04 2207 98.6 75 18 100/65 98 Room Air 02/04 2046 99.1 84 20 106/57 96 Room Air 02/04 1724 98.4 86 18 111/69 97 Room Air 02/04 1635 93 18 117/77 Room Air 02/04 1455 98.7 86 20 120/81 98 Room Air 02/04 1341 97.0 97 18 117/79 98 Room Air Intake & Output 02/05 1600 02/05 0802/05 0000 02/04 1600 02/04 0800 02/04 0000 Intake Total Output Total Balance Patient 170 lb 170 lb Weight Weight Reported by Patient Measurement Method Physical Exam: gen- NAD resp- clear cardiac- RRR abd- obese, minimally distended, soft, tender throughout with gaurding, no rebound tenderness. incisions are clean and dry with no signs of infection. Right side incision skin edges are not approximated, this was a drain site, there is no drainage or sign of infection. steristrip placed and covered with clean dry dressing Current Medications: Current Medications Sig/Sheri Start time Last Medication Dose Route Stop Time Status Admin Acetaminophen 0 .STK-MED ONE 02/05 447 DC IV Acetaminophen 1,000 MG Q6H 02/045 02/05 N/A 1 UNIT IV 02/05 165 0451 Ampicillin Sodium/ 3,000 MG Q6 02/04 2359 02/05 Sulbactam Sodium IV 0504 Sodium Chloride 100 ML Bupropion HCl 150 MG BID 02/05 900 AC PO Dextrose/Sodium 1,000 ML Q13H 02/04 2245 02/05 Chloride IV 0006 Doxazosin Mesylate 1 MG QPM 02/04 2359 AC 02/05 PO 0018 Duloxetine HCl 60 MG DAILY 02/05 900 AC PO Heparin Sodium 5,000 UNIT Q8 02/05 0600 AC 02/05 (Porcine) SC 0504 Hydrocodone Bitart/ 30 ML Q6P PRN 02/04 224 AC Acetaminophen PO Hydrocodone Bitart/ 15 ML Q6P PRN 02/04 224 AC Acetaminophen PO Hydromorphone HCl 1 MG Q2-3 HRS NEEDED.. 02/04 2245 AC 02/05 IV 0754 Hydromorphone HCl 0 .STK-MED ONE 02/04 1846 DC .ROUTE Hydromorphone HCl 0.6 MG ONCE ONE 02/04 1830 DC 02/04 IV 02/04 1831 1853 Insulin Human Regular 0 TIDAC/HS 02/05 08 AC SC Ketorolac 15 MG Q6 02/04 2359 AC 02/05 Tromethamine IV 02/09 2358 0504 Lisinopril 10 MG DAILY 02/05 900 AC PO Lorazepam 0.5 MG Q6 PRN 02/04 2245 AC PO 02/11 2244 Morphine Sulfate 0 .STK-MED ONE 02/04 1634 DC .ROUTE Morphine Sulfate 4 MG ONCE ONE 02/04 1630 DC 02/04 IV 02/04 1631 1635 Morphine Sulfate 0 .STK-MED ONE 02/04 1440 DC .ROUTE Morphine Sulfate 4 MG ONCE ONE 02/04 1430 DC 02/04 IV 02/04 1431 1441 Ondansetron HCl 0 .STK-MED ONE 02/04 1440 DC .ROUTE Ondansetron HCl 4 MG ONCE ONE 02/04 1430 DC 02/04 IV 02/04 1431 1441 Pantoprazole Sodium 40 MG DAILY 02/05 09 AC IV Sodium Chloride 1,000 ML BOLUS ONE 02/04 1415 DC 02/04 IV 02/04 1514 1441 Results Last 48 Hours of Labs: Laboratory Tests 02/05 02/04 0625 1531 Chemistry Sodium Pending Potassium Pending Chloride Pending Carbon Dioxide Pending Anion Gap Pending BUN Pending Creatinine Pending BUN/Creatinine Ratio Pending Hematology CBC w Diff Pending WBC Pending RBC Pending Hgb Pending Hct Pending MCV Pending MCH Pending MCHC Pending RDW Pending Plt Count Pending MPV Pending Urines Urine Color (YEL,AMB,STR) YEL Urine Clarity (CLEAR) CLEAR Urine pH (5.0 - 8.0) 7.5 Ur Specific [place] (1.001 - 1.035) 1.010 Urine Protein (NEG,<30 MG/DL) NEG Urine Ketones (NEG) NEG Urine Nitrite (NEG) NEG Urine Bilirubin (NEG) NEG Urine Urobilinogen (0.1 - 1.0 EU/dl) 0.2 Ur Leukocyte Esterase (NEG) NEG Ur Microscopic EXAM NOT REQUIRED Urine Hemoglobin (NEG) NEG Urine Glucose (N MG/DL) NEG 02/04 1440 Chemistry Sodium (137 - 145 mmol/L) 139 Potassium (3.5 - 5.1 mmol/L) 4.5 Chloride (98 - 107 mmol/L) 105 Carbon Dioxide (22 - 30 mmol/L) 28 Anion Gap (5 - 16) 6 BUN (7 - 17 mg/dL) 15 Creatinine (0.5 - 1.0 mg/dL) 0.7 Estimated GFR (>60 ml/min) > 60 BUN/Creatinine Ratio (7 - 25 %) 21.4 Glucose (65 - 99 mg/dL) 98 Calcium (8.4 - 10.2 mg/dL) 9.6 Total Bilirubin (0.2 - 1.3 mg/dL) 0.4 AST (14 - 36 U/L) 19 ALT (9 - 52 U/L) 43 Alkaline Phosphatase (<127 U/L) 108 Total Protein (6.3 - 8.2 g/dL) 6.3 Albumin (3.5 - 5.0 g/dL) 3.7 Globulin (1.9 - 4.2 gm/dL) 2.6 Albumin/Globulin Ratio (1.1 - 2.2 %) 1.4 Lipase (23 - 300 U/L) 204 Hematology CBC w Diff NO MAN DIFF REQ WBC (4.8 - 10.8 /CUMM) 10.4 RBC (4.20 - 5.40 /CUMM) 3.99 L Hgb (12.0 - 16.0 G/DL) 12.2 Hct (37 - 47 %) 35.9 L MCV (81.0 - 99.0 FL) 90.0 MCH (27.0 - 31.0 PG) 30.5 MCHC (33.0 - 37.0 G/DL) 33.9 RDW (11.5 - 14.5 %) 13.9 Plt Count (130 - 400 /CUMM) 412 H MPV (7.4 - 10.4 FL) 6.9 L Gran % (42.2 - 75.2 %) 71.3 Lymphocytes % (20.5 - 51.1 %) 16.8 L Monocytes % (1.7 - 9.3 %) 9.9 H Eosinophils % (0 - 5 %) 1.7 Basophils % (0.0 - 2.0 %) 0.3 Absolute Granulocytes (1.4 - 6.5 /CUMM) 7.4 H Absolute Lymphocytes (1.2 - 3.4 /CUMM) 1.7 Absolute Monocytes (0.10 - 0.60 /CUMM) 1.0 H Absolute Eosinophils (0.0 - 0.7 /CUMM) 0.2 Absolute Basophils (0.0 - 0.2 /CUMM) 0 Assessment/Plan Assessment/Plan 47-year-old female 1 week status post gastric bypass surgery with diffuse abdominal pain. Likely this is a postoperative ileus with gas pain. There is also significant amount of soft tissue stranding on the right side of the abdomen which could represent an early cellulitis or panniculitis. Dr Sharif to see pt this morning Continue observation with serial abdominal exams continue clear liquid diet Encourage ambulation pain management PPI Cont ABX- Unasyn for possible cellulitis/panniculitis IV fluids DVT prophylaxis with heparin subcu and alps. fu labs this morning Core Measures Venous Thromboembolism VTE Risk Factors Surgery No Mechanical VTE Prophylaxis d/t N/A MechProphylax Ordered No VTE Pharm Prophylaxis d/t NA PharmProphylax ordered
[2018-02-05 08:28] LABS: HEMATOCRIT 29.7 % (37-47)
[2018-02-05 10:04] VITALS: BP 90/60
[2018-02-05 14:10] VITALS: BP 122/74; BP 133/84
--- NOTE | 2018-02-05 16:04 | RADIOLOGY REPORT ---
EXAMINATION: XR ABDOMEN MULTIPLE VIEWS CLINICAL INDICATION: Worsening abdominal pain. Reassess ileus versus small bowel obstruction. COMPARISON: CT scan of the abdomen and pelvis dated 02/04/2018. TECHNIQUE: 2 views of the abdomen performed on 4 images. FINDINGS: Left upper quadrant and left flank willis are in place. There is persistent gaseous distention of small and large bowel loops with a few scattered air-fluid levels seen. Gas is seen down to the rectosigmoid level. The appearance is similar to the previous exam and is consistent with an ileus pattern. No evidence of progressive bowel enlargement. No evidence of bowel perforation. Fair amount of fecal material and residual bowel contrast is seen in the right colon. Minimal atelectatic changes are seen in the lung bases bilaterally. Bony structures are unremarkable. IMPRESSION: Findings are consistent with an ongoing ileus. No definite evidence of bowel obstruction or perforation.
[2018-02-05 21:27] VITALS: BP 108/62
[2018-02-06 06:49] VITALS: BP 104/68
--- NOTE | 2018-02-06 07:34 | PN- Bariatrics ---
Subjective Subjective: Reports ongoing abdominal pain, which improves with dilaudid. Denies nausea. No flatus or bm yet. Denies fevers / chills / sweats. No dizziness. No shortness of breath. No chest pains. Voiding without difficulty. Objective Vital Signs and I&Os Vital Signs Date Time Temp Pulse Resp B/P B/P Pulse O2 O2 Flow FiO2 Mean Ox Delivery Rate 02/06 0649 97.8 75 18 104/68 97 02/05 2127 98.2 82 17 108/62 96 Room Air 02/05 1410 98.2 71 20 122/74 98 Room Air 02/05 1004 81 90/60 02/05 0849 61 18 78/44 Intake & Output 02/06 0000 02/05 1600 02/05 0000 02/04 1600 Intake Total 1250 1250 720 Output Total 600 Balance 1250 650 720 Intake, IV 600 450 600 Intake, Oral 650 800 120 Number 0 Bowel Movements Output, Urine 600 Patient 170 lb 170 lb Weight Weight Reported by Patient Measurement Method Physical Exam: General - alert & oriented x 3. comfortable. no acute distress. Lungs - clear bilaterally. no w/r/r. Cardiac - s1s2. reg. Abdomen - soft. some diffuse tenderness, but mostly localized to right sided port incision, with slight buldge appreciated over this area of tenderness. Extremities - warm bilaterally. no c/c/e. calves soft and nontender b/l. Current Medications: Current Medications Sig/Sheri Start time Last Medication Dose Route Stop Time Status Admin Acetaminophen 0 .STK-MED ONE 02/05 0950 DC IV Acetaminophen 1,000 MG Q6H 02/04 2245 DC 02/05 N/A 1 UNIT IV 02/05 1659 1637 Ampicillin Sodium/ 3,000 MG Q6 02/04 2359 02/06 Sulbactam Sodium IV 0552 Sodium Chloride 100 ML Bupropion HCl 150 MG BID 02/05 900 AC 02/05 PO 2015 Dextrose/Sodium 1,000 ML Q13H 02/04 224 02/05 Chloride IV 2016 Doxazosin Mesylate 1 MG QPM 02/04 2359 02/05 PO 2016 Duloxetine HCl 60 MG DAILY 02/05 900 PO Heparin Sodium 5,000 UNIT Q8 02/05 06 02/06 (Porcine) SC 0546 Hydrocodone Bitart/ 15 ML Q6P PRN 02/05 1515 AC 02/05 Acetaminophen PO 2227 Hydrocodone Bitart/ 30 ML Q6P PRN 02/04 2245 DC Acetaminophen PO Hydrocodone Bitart/ 15 ML Q6P PRN 02/04 224 DC Acetaminophen PO Hydromorphone HCl 0.6 MG Q2-3 HRS NEEDED.. 02/05 1515 AC 02/06 IV 0402 Hydromorphone HCl 1 MG Q2-3 HRS NEEDED.. 02/04 2245 DC 02/05 IV 1316 Insulin Human Regular 0 TIDAC/HS 02/06 800 AC SC Ketorolac 15 MG Q6 02/04 235 AC 02/06 Tromethamine IV 02/09 2358 0546 Lisinopril 10 MG DAILY 02/05 900 AC PO Lorazepam 0.5 MG Q6 PRN 02/04 224 AC 02/05 PO 02/11 224 0952 Pantoprazole Sodium 40 MG DAILY 02/05 900 AC 02/05 IV 0848 Patient Medication 1 ED ONE ONE 02/06 2000 DC 02/06 Teaching ED 02/05 2001 0122 Simethicone 40 MG Q4P PRN 02/05 1615 AC PO Results Last 48 Hours of Labs: Laboratory Tests 02/05 02/04 0625 1531 Chemistry Sodium (137 - 145 mmol/L) 139 Potassium (3.5 - 5.1 mmol/L) 3.9 Chloride (98 - 107 mmol/L) 109 H Carbon Dioxide (22 - 30 mmol/L) 23 Anion Gap (5 - 16) 7 BUN (7 - 17 mg/dL) 10 Creatinine (0.5 - 1.0 mg/dL) 0.7 Estimated GFR (>60 ml/min) > 60 BUN/Creatinine Ratio (7 - 25 %) 14.3 Hematology CBC w Diff NO MAN DIFF REQ WBC (4.8 - 10.8 /CUMM) 6.4 RBC (4.20 - 5.40 /CUMM) 3.27 L Hgb (12.0 - 16.0 G/DL) 10.0 L Hct (37 - 47 %) 29.7 L MCV (81.0 - 99.0 FL) 90.7 MCH (27.0 - 31.0 PG) 30.5 MCHC (33.0 - 37.0 G/DL) 33.6 RDW (11.5 - 14.5 %) 14.2 Plt Count (130 - 400 /CUMM) 278 MPV (7.4 - 10.4 FL) 7.5 Gran % (42.2 - 75.2 %) 53.4 Lymphocytes % (20.5 - 51.1 %) 33.9 Monocytes % (1.7 - 9.3 %) 9.9 H Eosinophils % (0 - 5 %) 2.3 Basophils % (0.0 - 2.0 %) 0.5 Absolute Granulocytes (1.4 - 6.5 /CUMM) 3.4 Absolute Lymphocytes (1.2 - 3.4 /CUMM) 2.2 Absolute Monocytes (0.10 - 0.60 /CUMM) 0.6 Absolute Eosinophils (0.0 - 0.7 /CUMM) 0.1 Absolute Basophils (0.0 - 0.2 /CUMM) 0 Urines Urine Color (YEL,AMB,STR) YEL Urine Clarity (CLEAR) CLEAR Urine pH (5.0 - 8.0) 7.5 Ur Specific [place] (1.001 - 1.035) 1.010 Urine Protein (NEG,<30 MG/DL) NEG Urine Ketones (NEG) NEG Urine Nitrite (NEG) NEG Urine Bilirubin (NEG) NEG Urine Urobilinogen (0.1 - 1.0 EU/dl) 0.2 Ur Leukocyte Esterase (NEG) NEG Ur Microscopic EXAM NOT REQUIRED Urine Hemoglobin (NEG) NEG Urine Glucose (N MG/DL) NEG 02/04 1440 Chemistry Sodium (137 - 145 mmol/L) 139 Potassium (3.5 - 5.1 mmol/L) 4.5 Chloride (98 - 107 mmol/L) 105 Carbon Dioxide (22 - 30 mmol/L) 28 Anion Gap (5 - 16) 6 BUN (7 - 17 mg/dL) 15 Creatinine (0.5 - 1.0 mg/dL) 0.7 Estimated GFR (>60 ml/min) > 60 BUN/Creatinine Ratio (7 - 25 %) 21.4 Glucose (65 - 99 mg/dL) 98 Calcium (8.4 - 10.2 mg/dL) 9.6 Total Bilirubin (0.2 - 1.3 mg/dL) 0.4 AST (14 - 36 U/L) 19 ALT (9 - 52 U/L) 43 Alkaline Phosphatase (<127 U/L) 108 Total Protein (6.3 - 8.2 g/dL) 6.3 Albumin (3.5 - 5.0 g/dL) 3.7 Globulin (1.9 - 4.2 gm/dL) 2.6 Albumin/Globulin Ratio (1.1 - 2.2 %) 1.4 Lipase (23 - 300 U/L) 204 Hematology CBC w Diff NO MAN DIFF REQ WBC (4.8 - 10.8 /CUMM) 10.4 RBC (4.20 - 5.40 /CUMM) 3.99 L Hgb (12.0 - 16.0 G/DL) 12.2 Hct (37 - 47 %) 35.9 L MCV (81.0 - 99.0 FL) 90.0 MCH (27.0 - 31.0 PG) 30.5 MCHC (33.0 - 37.0 G/DL) 33.9 RDW (11.5 - 14.5 %) 13.9 Plt Count (130 - 400 /CUMM) 412 H MPV (7.4 - 10.4 FL) 6.9 L Gran % (42.2 - 75.2 %) 71.3 Lymphocytes % (20.5 - 51.1 %) 16.8 L Monocytes % (1.7 - 9.3 %) 9.9 H Eosinophils % (0 - 5 %) 1.7 Basophils % (0.0 - 2.0 %) 0.3 Absolute Granulocytes (1.4 - 6.5 /CUMM) 7.4 H Absolute Lymphocytes (1.2 - 3.4 /CUMM) 1.7 Absolute Monocytes (0.10 - 0.60 /CUMM) 1.0 H Absolute Eosinophils (0.0 - 0.7 /CUMM) 0.2 Absolute Basophils (0.0 - 0.2 /CUMM) 0 Assessment/Plan Assessment/Plan This 47 year old female with history of morbid obesity, htn, dm, is over a week s/p lap gastric bypass / hiatal hernia repair by Dr.Neil Collier ( ), placed in observation status with post-op ileus, ?incisional hernia at port site may consider npo / ivf pain control as ordered, as needed hep sc - dvt ppx oob/ambulation encouraged accuchecks stable d/c unasyn. improved tape / adhesive related skin irritation. no evidence of cellulitis observation status pending return of bowel function will d/w Core Measures Venous Thromboembolism VTE Risk Factors Surgery No Mechanical VTE Prophylaxis d/t N/A MechProphylax Ordered No VTE Pharm Prophylaxis d/t NA PharmProphylax ordered
[2018-02-06 13:57] VITALS: BP 120/98
--- NOTE | 2018-02-06 14:52 | ULTRASOUND REPORT ---
EXAMINATION: US ABDOMEN LIMITED CLINICAL INFORMATION: Possible seroma versus port site hernia. COMPARISON: CT scan of the abdomen and pelvis 02/04/2018. TECHNIQUE: Real-time imaging of the right lower quadrant was obtained. FINDINGS: There is a lobular fluid collection in the subcutaneous soft tissues deep to the incision in the right lower quadrant which measures 3.9 x 1.2 x 1.4 cm, most consistent with a small seroma. No increased vascularity is demonstrated. No loops of bowel are demonstrated. IMPRESSION: 1. There is a lobular fluid collection in the subtendinous soft tissues in the region of the incision as described above. No evidence of bowel herniation is noted in the region.
[2018-02-06 21:17] VITALS: BP 144/80
[2018-02-07 06:37] VITALS: BP 132/76
[2018-02-07 08:31] LABS: ABSOLUTE BASOPHIL COUNT 0 /CUMM (0.0-0.2); ABSOLUTE EOSINOPHIL COUNT 0.1 /CUMM (0.0-0.7); ABSOLUTE GRANULOCYTE CT 2.2 /CUMM (1.4-6.5); ABSOLUTE LYMPH COUNT 1.8 /CUMM (1.2-3.4); ABSOLUTE MONOCYTE COUNT 0.3 /CUMM (0.10-0.60); BASOPHIL % 0.7 % (0.0-2.0); EOSINOPHIL % 2.5 % (0-5); GRANULOCYTE % 48.6 % (42.2-75.2); HEMATOCRIT 29.6 % (37-47); MEAN CORPUSCULAR HGB 30.5 PG (27.0-31.0); MEAN CORPUSCULAR VOLUME 89.6 FL (81.0-99.0); MEAN PLATELET VOLUME 7.6 FL (7.4-10.4); PLATELET COUNT 326 /CUMM (130-400); RBC DISTRIBUTION WIDTH 13.8 % (11.5-14.5); WHITE BLOOD CELL COUNT 4.5 /CUMM (4.8-10.8)
[2018-02-07 09:07] VITALS: BP 130/72
--- NOTE | 2018-02-07 09:56 | Patient Discharge Instructions ---
Discharge Instructions General Discharge Information You were seen/treated for: post op ileus s/p gastric bypass Watch for these problems: increased abdominal pain or nausea/vomiting, increased redness or drainage of wounds Do not soak the wound: Yes Other wound care: Keep incision clean and dry. May shower but no bathing or soaking Diet Recommended Diet: Full Liquids (advance as directed) Activity Activity Self Limited: Yes Acute Coronary Syndrome Inclusion Criteria At DC or during hospital stay patient has or had the following: ACS DIAGNOSIS No Discharge Core Measures Meds if any: Prescribed or Continued at Discharge Meds if any: NOT Prescribed or Continued at Discharge Congestive Heart Failure Inclusion Criteria At DC or during hospital stay patient has or had the following: CHF DIAGNOSIS No Discharge Core Measures Meds if any: Prescribed or Continued at Discharge Meds if any: NOT Prescribed or Continued at Discharge Cerebrovascular accident Inclusion Criteria At DC or during hospital stay patient has or had the following: CVA/TIA Diagnosis No Discharge Core Measures Meds if any: Prescribed or Continued at Discharge Meds if any: NOT Prescribed or Continued at Discharge Venous thromboembolism Inclusion Criteria VTE Diagnosis No VTE Type NONE VTE Confirmed by (Test) NONE Discharge Core Measures - Per Current guidelines, there needs to be overlap - treatment for the first 5 days of Warfarin therapy. - If discharged on Warfarin prior to 5 days of - overlap therapy, the patient will need to be - assessed for post discharge needs including - *Post discharge parental anticoagulation - *Warfarin and/or parental anticoagulation education - *Follow up date to check INR post discharge At least 5 days overlap therapy as Inpatient No Meds if any: Prescribed or Continued at Discharge Note: Overlap Therapy is Warfarin and Anticoagulant Meds if any: NOT Prescribed or Continued at Discharge
--- NOTE | 2018-02-07 10:04 | PN- General Surgery ---
See Addendum Subjective Subjective: Pt feels much better today No complaints overnight No nausea/vomiting Pain is tolerable Objective Vital Signs and I&Os Vital Signs Date Time Temp Pulse Resp B/P B/P Pulse O2 O2 Flow FiO2 Mean Ox Delivery Rate 02/07 0907 72 130/72 02/07 0637 97.5 69 20 132/76 96 02/06 2117 98.8 90 22 144/80 98 Room Air 02/06 1357 98.0 81 18 120/98 100 Room Air Intake & Output 02/07 1600 02/07 0800 02/07 0000 02/06 1600 02/06 0802/06 0000 Intake Total 520 510 596 811 7224 Output Total 300 Balance 520 510 278 245 4621 Intake, IV 40 30 200 600 600 Intake, Oral 480 480 360 650 Number 0 0 0 Bowel Movements Output, Urine 300 Physical Exam: VSS, afebrile General: alert and oriented times three Chest: clear anteriorly bilaterally, RRR Abd: soft, good bs Wd: dressing changed, serosang drainage on the dressing, no active drainage, no erythema, can still feel a small bump just inferior to the opening - nontender Ext: warm, no edema Assessment/Plan Assessment/Plan 47yo female admitted with abdominal pain post op, dx with a seroma surrounding a port site on the right, site was opened yesterday by Dr Sharif and drained - pain is much improved plan to dc home follow up next week for a wound check no need for abx at this time drainage is serosanguinous all questions answered Core Measures Venous Thromboembolism VTE Risk Factors Surgery No Mechanical VTE Prophylaxis d/t N/A MechProphylax Ordered No VTE Pharm Prophylaxis d/t NA PharmProphylax ordered
--- NOTE | 2018-02-07 10:52 | Surg Short-stay <48hrs Dis Sum ---
Visit Information Visit Dates Admission Date: 02/04/18 Discharge Date: 02/07/2018 Surgical Short Stay DC Summary Admission Diagnosis: Post op ileus s/p gastric byass, seroma at port site Final Diagnosis: same, s/p I and D of port site seromoa Procedure(s): I and D port site seroma Summary/Significant Findings: Pt was admitted with a post op ileus and swelling/tenderness at a port site in the right abdomen. Port site was dx via ultrasound as a seroma and was opened and drained at the bedside on 02/06. Drainage of serousanguinous fluid was noted, no purulent drainage, no cellulitis. Pt tolerated the procedure well and felt much better afterwards. On 02/07 she felt good, was ambulating, pain was well controlled and she was cleared for discharge home. Follow up early next week for a wound check. Condition at Discharge: good Discharge Disposition: home or self care Discharge instructions provided to patient/family: Yes Post discharge follow-up plan: Next week for a wound check
[2018-02-07] MEDS ORDERED: HYCET 7.5 MG-3473 ML PO (11:14)
== END 2018-02-07 12:00 ==
LOC: ERH 13:38 → 2NB 21:12 → ERHI 21:12 → ERH 21:12 → ENTRNSPT 22:04 → EDTRNSPT 22:05 → EDTRNSPTSTS 22:32 → 2NB 22:44 → CMPTRNSPT 22:53 → ENPENDDIS 02-07 09:30 → 2NB 02-07 12:00
PROVIDERS: Emergency Medicine; Physician Assistant Surgical
DX: K91.89 Other postprocedural complications and disorders of digestive system (principal); K56.7 Ileus, unspecified; Y83.9 Surgical procedure, unspecified as the cause of abnormal reaction of the patient, or of later complication, without mention of misadventure at the time of the procedure; L76.34 Postprocedural seroma of skin and subcutaneous tissue following other procedure; I10 Essential (primary) hypertension; M79.7 Fibromyalgia; E11.9 Type 2 diabetes mellitus without complications
CPT/HCPCS: 6040; 36415; 36592; 74021; 74177; 81003; 82436; 96361; 96372; 96374; 96375; 96376; G0378; J0131; J1644; J2405; J3490; J7042